=== PATIENT | female | born 1975 | race Caucasian/White ===

== ENCOUNTER 2021-02-09 20:36 | Emergency (ER) | payer OTHER ==
[~2021-02-09 20:36] MED LIST: CARAFATE1 GM PO; LISINOPRIL-HCT1 EACH PO; ONDANSETRON ODT4 MG SL; PROTONIX 40MG T40 MG PO
[2021-02-09 20:57] LABS: BASOPHIL 0.1 % (0-2); EOSINOPHIL 0 % (0-5); HCT 44.8 % (37.0-47.0); HGB 14.3 g/dl (12.5-16.0); LYMPHOCYTE 10.1 % (15-48); MCH 24.6 pg (25.0-31.0); MCHC 31.9 g/dL (32.0-36.0); MCV 77.1 fL (78.0-100.0); MONOCYTE 2.5 % (0-12); MPV 9.2 fL (6.0-9.5); NEUTROPHIL 86.8 % (41-80); NRBC 0; PLT 426 K/uL (150-400); RBC 5.81 M/uL (4.20-5.40); RDW 15.6 % (11.5-14.0); WBC 20.1 K/uL (4.0-10.5)
[2021-02-09 21:15] LABS: ALBUMIN 3.5 g/dL (3.4-5.0); BILIRUBIN - TOTAL 0.6 mg/dL (0.2-1.0); BUN/CREAT RATIO (CALC) 25.6 RATIO; CREATININE 0.82 mg/dL (0.51-0.95); POTASSIUM 4.9 mmol/L (3.5-5.1); TOTAL PROTEIN 7.5 g/dL (6.4-8.2)
[2021-02-09 21:23] LABS: BILIRUBIN 1+ mg/dL (NEGATIVE); BLOOD NEGATIVE Ery/uL (NEGATIVE); CLARITY CLEAR (CLEAR); COLOR YELLOW (YELLOW); GLUCOSE (U) NORMAL (NORMAL); LEUKOCYTES NEGATIVE Leu/uL (NEGATIVE); NITRITE NEGATIVE (NEGATIVE); PROTEIN TRACE (LOW) mg/dL (NEGATIVE); SPECIFIC GRAVITY >=1.030 (1.001-1.030); UROBILINOGEN 0.2 mg/dL (0.2-1.0)
[2021-02-09 21:28] LABS: BACTERIA 2+; MUCOUS LARGE; URINARY RBC RARE
[2021-02-09 21:30] LABS: AMORPHOUS URATES CRYSTALS TRACE; STARCH GRANULES PRESENT
== END 2021-02-10 03:00 | disposition other institution (70) ==
LOC: FER 20:36
PROVIDERS: Nurse Practitioner Family
DX: R18.8 Other ascites (principal); K21.9 Gastro-esophageal reflux disease without esophagitis; Z98.890 Other specified postprocedural states; Z88.2 Allergy status to sulfonamides; Z79.899 Other long term (current) drug therapy
CPT/HCPCS: 36415; 80053; 81001; 83605; 83690; 84145; 84484; 85025; 87040; 96372; J0500; J1170; J2270; J2405; J2543; J2550; J7030; Q9967

== ENCOUNTER 2022-03-13 20:03 | Emergency (ER) | payer OTHER | END 2022-03-13 22:53 | disposition home or self-care (01) | LOC: FER 20:03 | DX: M25.562 Pain in left knee (principal); I10 Essential (primary) hypertension; Z88.2 Allergy status to sulfonamides; Z79.899 Other long term (current) drug therapy | CPT/HCPCS: 73560 ==

== ENCOUNTER 2022-05-13 14:34 | Emergency (ER) | payer OTHER ==
[~2022-05-13 14:34] MED LIST changes: +DICLOFENAC SODI75 MG PO; +EPIPEN0.3 MG/0.3 IM; +FEOSOL325 MG PO; +LISINOPRIL-HCT1 EAC2 PO; +MACROBID100 MG PO; +METFORMIN HCL500 M1 PO; +PEPCID AC20 MG PO; +PHENTERMINE H37.5 M1 PO; +SACCHAROMYCES250 MG PO
[2022-05-13 20:17] LABS: BASOPHIL 0.1 % (0-2); EOSINOPHIL 1.4 % (0-5); HCT 31.2 % (37.0-47.0); HGB 9.5 g/dl (12.5-16.0); LYMPHOCYTE 18.5 % (15-48); MCH 23.3 pg (25.0-31.0); MCHC 30.4 g/dL (32.0-36.0); MCV 76.7 fL (78.0-100.0); MONOCYTE 11.2 % (0-12); MPV 9.3 fL (6.0-9.5); NEUTROPHIL 68.3 % (41-80); NRBC 0; PLT 219 K/uL (150-400); RBC 4.07 M/uL (4.20-5.40); RDW 19.8 % (11.5-14.0)
[2022-05-13 20:23] LABS: CORONAVIRUS 2019 SARS-COV-2 NEGATIVE (NEGATIVE); INFLUENZA A NAA NEGATIVE (NEGATIVE)
[2022-05-13 20:36] LABS: ALBUMIN 2.9 g/dL (3.4-5.0); BILIRUBIN - TOTAL 0.6 mg/dL (0.2-1.0); BUN/CREAT RATIO (CALC) 14.1 RATIO; CREATININE 0.78 mg/dL (0.51-0.95); GLOBULIN (CALCULATION) 3.6 g/dL; POTASSIUM 3.6 mmol/L (3.5-5.1); TOTAL PROTEIN 6.5 g/dL (6.4-8.2)
[2022-05-13 21:31] LABS: BILIRUBIN 2+ mg/dL (NEGATIVE); BLOOD NEGATIVE Ery/uL (NEGATIVE); CLARITY CLEAR (CLEAR); COLOR YELLOW (YELLOW); GLUCOSE (U) NORMAL (NORMAL); LEUKOCYTES 1+ Leu/uL (NEGATIVE); NITRITE NEGATIVE (NEGATIVE); PROTEIN TRACE (LOW) mg/dL (NEGATIVE); SPECIFIC GRAVITY >=1.030 (1.001-1.030); UROBILINOGEN 0.2 mg/dL (0.2-1.0)
[2022-05-13 21:47] LABS: URINARY WBC 20-50
[2022-05-13 21:49] LABS: MUCOUS MODERATE; STARCH GRANULES PRESENT
[2022-05-13] MEDS ORDERED: PHENERGAN25 M1 PO (22:13)
[2022-05-13] MEDS ORDERED: LOMOTIL1 EACH PO (22:13)
[2022-05-13] MEDS ORDERED: BENTYL10 MG PO (22:13)
== END 2022-05-14 00:15 | disposition home or self-care (01) ==
LOC: FER 14:34
PROVIDERS: Nurse Practitioner Family
DX: E86.0 Dehydration (principal); R11.2 Nausea with vomiting, unspecified; R19.7 Diarrhea, unspecified; R10.30 Lower abdominal pain, unspecified; I10 Essential (primary) hypertension; E66.9 Obesity, unspecified; Z88.2 Allergy status to sulfonamides; Z87.891 Personal history of nicotine dependence; Z20.822 Contact with and (suspected) exposure to COVID-19
CPT/HCPCS: 36415; 80053; 81001; 85025; J1885; J2405; J2550; J7030; U0002